=== PATIENT | female | born 1950 | race Two or more races ===

== ENCOUNTER → 2024-09-22 | Outpatient (CLI) | payer OTHER, MEDICAID, SELFPAY ==
[2024-09-22 07:53] LABS: Collection Type, Urine Clean Catch
[2024-09-22 08:29] LABS: Basophils # (Auto) 0.1 Thou/mm3 (0.0-0.2); Basophils % (Auto) 1 % (0-2.5); Eosinophils # (Auto) 0.2 Thou/mm3 (0.0-0.5); Eosinophils % (Auto) 4 % (0-10); Hematocrit 44.3 % (36.0-46.0); Hemoglobin 15.4 g/dL (12.0-16.0); Immature Granulocytes % (Auto) 0 % (0-0); Immature Granulocytes Auto 0.02 Thou/mm3 (0.00-0.00); Lymphocytes # (Auto) 1.9 Thou/mm3 (1.0-4.8); Lymphocytes % (Auto) 33 % (10-50); Mean Corpuscular HGB Conc 34.8 g/dl (31.0-37.0); Mean Corpuscular Hemoglobin 31.6 pg (25.0-35.0); Mean Corpuscular Volume 91 fL (80-100); Monocytes # (Auto) 0.4 Thou/mm3 (0.0-0.8); Monocytes % (Auto) 8 % (0-12); Neutrophils # (Auto) 3.1 Thou/mm3 (1.8-7.7); Neutrophils % (Auto) 54 % (37-80); Nucleated Red Blood Cell % 0 /100 WBC (0); Platelet Count 198 Thou/mm3 (140-440); RDW Standard Deviation 41.4 fL (36.4-46.3); Red Blood Count 4.87 Miln/mm3 (4.00-5.20); White Blood Count 5.8 Thou/mm3 (3.6-11.0)
[2024-09-22 08:36] LABS: Bilirubin,Urine Negative (Negative); Blood,Urine Negative (Negative); Clarity,Urine Clear (Clear/Hazy); Color,Urine Lt-Yellow (Lt Yel-Yel); Culture Indicated,Urine Not Indicated; Glucose, Urine Negative (Negative); Ketones,Urine Negative (Negative); Leukocyte Esterase,Urine Positive (Negative); Nitrite,Urine Negative (Negative); Protein,Urine Negative (Neg - Trace); RBC,Urine 5 /hpf (0-3); Squamous Epithelial Cell,Urine 2 /hpf (0-5); Urobilinogen,Urine Negative mg/dL (0.0-1.0); WBC,Urine 9 /hpf (0-5)
[2024-09-22 08:37] LABS: Glucose Estimated Average 146 mg/dL (80-131); Hemoglobin A1C 6.7 % Hgb (4.8-6.0)
[2024-09-22 08:45] LABS: Vitamin B12 539 pg/mL (211-911); Vitamin D 25 Hydroxy Total 16.6 ng/mL (7.3-40.2)
[2024-09-22 08:47] LABS: Alanine Aminotransferase 16 U/L (10-49); Albumin, Serum 4.1 gm/dL (3.4-4.8); Albumin/Globulin Ratio 1.6 (1.2-2.2); Alkaline Phosphatase 103 U/L (46-116); Anion Gap 8 (7-16); Aspartate Amino Transferase 20 U/L (0-34); BUN/Creatinine Ratio 30 Ratio (12-20); Bilirubin,Total 0.5 mg/dL (0.3-1.2); Blood Urea Nitrogen 18 mg/dL (9-23); Calcium 9.6 mg/dL (8.3-10.6); Calcium (Corrected) 9.6 mg/dL (8.5-10.1); Carbon Dioxide 28.8 mMol/L (20.0-31.0); Chloride 103 mMol/L (98-107); Cholesterol 239 mg/dL (132-200); Creatinine (Component) 0.6 mg/dL (0.6-1.3); Globulin 2.5 gm/dL (2.3-3.5); Glucose 148 mg/dL (74-106); HDL Cholesterol 40 mg/dL (40-60); LDL Cholesterol,Calculated 164 mg/dL (0-130); Osmolality,Calculated 284 (275-295); Potassium 4.4 mMol/L (3.4-5.1); Sodium 140 mMol/L (136-145); Thyroid Stimulating Hormone 1.61 uIU/mL (0.55-4.78); Total Protein 6.6 gm/dL (5.7-8.2); Triglycerides 175 mg/dL (30-150); eGFR > 60 See Note
[2024-09-22 08:53] LABS: Creatinine MALB Rnd Ur 101 mg/dL (30-125); Microalbumin Creat Ratio 8 mg/gCrea (<30); Microalbumin, Random Urine 8 mg/L (0-300)
== END | disposition home or self-care (01) ==
LOC: COPL 07:11
PROVIDERS: PCP Physician Assistant; Referring Provider Physician Assistant; Visit Provider Physician Assistant
DX: Z00.00 Encounter for general adult medical examination without abnormal findings (principal); E78.5 Hyperlipidemia, unspecified; E11.9 Type 2 diabetes mellitus without complications; R31.9 Hematuria, unspecified
CPT/HCPCS: 36415; 80053; 80061; 81001; 82043; 82306; 82570; 82607; 83036; 84443; 85025

== ENCOUNTER 2024-09-28 19:27 | Emergency (ER) | payer OTHER, SELFPAY ==
[2024-09-28 19:28] VITALS: BMI 33.2
[2024-09-28 20:25] VITALS: BP 166/80; PULSE 79; RESP 18; TEMP 36.8; O2SAT 95
--- NOTE | 2024-09-28 21:41 | PD.EDRME ---
Rapid Medical Screening Exam RME Arrival date/time: 09/28/24 19:27 73F with history of anxiety presents to ED with 5 years of intermittent RUQ inflammation. Patient has had multiple benign work-ups including US and CT (most recently 6 months ago). Patient has not seen specialist and wanted to come here because it is faster. Patient states inflammation/discomfort is better when she stands. Chief Complaint: Abdominal Pain Vital signs: Vital Signs Temperature 98.2 F 09/28/24 20:25 Pulse Rate 79 09/28/24 20:25 Respiratory Rate 18 09/28/24 20:25 Blood Pressure 166/80 H 09/28/24 20:25 Pulse Oximetry (%) 95 09/28/24 20:25 Oxygen Delivery Method Room Air 09/28/24 20:25
== END 2024-09-28 21:42 | disposition left against medical advice (07) ==
PROVIDERS: Emergency Provider Emergency Medicine
DX: R10.11 Right upper quadrant pain (principal)
CPT/HCPCS: 99281

== ENCOUNTER → 2024-09-29 | Outpatient (CLI) | payer OTHER, MEDICAID, SELFPAY ==
--- NOTE | 2024-09-29 13:23 | XR_ITS ---
Examination: Knee, right , 3 views Technique: Knee AP, lateral, oblique 3 views Date and time of exam: September 29, 2024 1408 hours INDICATIONS: Right knee pain beginning 2 years ago FINDINGS: Moderate tricompartment osteoarthritis Moderate osteopenia. No fracture IMPRESSION: Moderate tricompartment osteoarthritis
--- NOTE | 2024-09-29 13:23 | XR_ITS ---
Examination: Lumbar spine, 5 views Technique: Lumbar spine AP, lateral, coned lateral lower lumbar spine, bilateral obliques 5 views Exam date and time: September 29, 2024 1408 hours Comparison 03/20/2022 FINDINGS: Thoracolumbar dextroscoliosis 8 degrees Diffuse moderate facet arthropathy No lumbar fracture Moderate lumbar spondylosis Diffuse [id number] lumbar degenerative disc disease, most prominent L4-L5, L5-S1 IMPRESSION: Diffuse [id number] lumbar degenerative disc disease, most prominent L4-L5, L5-S1
--- NOTE | 2024-09-29 13:23 | XR_ITS ---
Examination:Right hip AP, lateral, AP pelvis 3 views Technique: Hip AP lateral, AP pelvis, 3 views Exam date and time:September 21, 2024 1408 hours INDICATIONS: Right hip pain 2 years FINDINGS: Moderate to advanced right hip osteoarthritis Prominent osteopenia. Total left hip arthroplasty with satisfactory alignment IMPRESSION: Moderate to advanced right hip osteoarthritis.
--- NOTE | 2024-09-29 13:23 | XR_ITS ---
Examination: Right femur 2 views Technique one AP lateral right femur 2 views Exam date and time: September 29, 2024 1428 hours INDICATIONS: Right femur pain 2 years. FINDINGS: Moderate to advanced right hip osteoarthritis No hip fracture or hip dislocation Shaft of the femur intact Moderate right knee tricompartment osteoarthritis IMPRESSION: Moderate to advanced right hip osteoarthritis No hip or femoral shaft fracture
--- NOTE | 2024-09-29 13:30 | XR_ITS ---
Examination: Pelvic ultrasound, transabdominal, complete Technique: Transabdominal ultrasound of the pelvis performed using grayscale imaging Date and time of exam: September 29, 2024 1328 hours INDICATIONS: Recurrent urinary tract infections, diagnosis not inflammatory disorders of the uterus months, pelvic pain months FINDINGS: Uterus 8.3 cm endometrial stripe 0.5 cm Uterine fundal mass 3.0 x 3.2 cm uterine body mass 2.6 x 2.8 cm Right ovary 2.9 cm arterial flow Left ovary obscured by bowel gas IMPRESSION: Uterine areas of probable fibroid degeneration, recommend 6 month follow-up transvaginal pelvic sonography
--- NOTE | 2024-09-29 14:10 | XR_ITS ---
Examination: Bone densitometry Date and time of exam:September 29, 2024 1431 hours INDICATIONS: Menopause age 43 Technique: Lumbar spine and hip total bone mineralization values of an calculated. Peak reference and age match control results have been displayed. Findings: Lumbar spine total bone mineralization is1.057 gm/cm2. This is 0.1 standard deviations above peak reference. This is 2.5 standard deviations above age-matched controls. Hip total bone mineralization is 1.016 gm/cm2 This is 0.4 standard deviations above peak reference. This is 2.2 standard deviations above age-matched controls Impression: There is normal mineralization based on lumbar spine measurements. There is osteopenia based on hip measurements Lumbar mineralization is increased 2.2% compared with May 12, 2016 Hip mineralization is increase 4.8% compared with May 12, 2016
== END | disposition home or self-care (01) ==
PROVIDERS: PCP Family Medicine; Referring Provider Physician Assistant; Visit Provider Physician Assistant
DX: N85.8 Other specified noninflammatory disorders of uterus (principal); M85.89 Other specified disorders of bone density and structure, multiple sites; M16.11 Unilateral primary osteoarthritis, right hip; M17.11 Unilateral primary osteoarthritis, right knee; M51.369 Other intervertebral disc degeneration, lumbar region without mention of lumbar back pain or lower extremity pain; M51.379 Other intervertebral disc degeneration, lumbosacral region without mention of lumbar back pain or lower extremity pain
CPT/HCPCS: 72110; 73502; 73552; 73562; 76856; 77080

== ENCOUNTER → 2024-10-04 | Outpatient (CLI) | payer OTHER, MEDICAID, SELFPAY ==
--- NOTE | 2024-10-04 16:30 | XR_ITS ---
Examination: MRI abdomen , with intravenous contrast. Exam date and time: October 04, 2024 1823 hours INDICATIONS: Right upper abdominal pain beginning 2 months ago, fatty liver on CT abdomen study April 13, 2024 Technique: Multiple axial, sagittal and coronal images of the abdomen have been obtained with the Siemens high-resolution 1.5 Manisha MRI scanner. Axial, sagittal and coronal images are obtained post intravenous injection 20 cc gadolinium. Findings: No focal enhancing liver lesions No gallstones identified Spleen is not enlarged No pancreatic mass or dilated pancreatic duct Normal adrenal glands Abdominal aorta normal size No abdominal lymphadenopathy Small bilateral renal cysts, the largest lower pole left kidney 14 mm No hydronephrosis No extrahepatic biliary tract dilatation IMPRESSION: No abdominal mass or lymphadenopathy Consider a hepatobiliary sonography follow-up
== END | disposition home or self-care (01) ==
PROVIDERS: PCP Physician Assistant; Referring Provider Physician Assistant; Visit Provider Physician Assistant
DX: R10.9 Unspecified abdominal pain (principal)
CPT/HCPCS: 74182; A9579

== ENCOUNTER → 2024-10-11 | Outpatient (CLI) | payer OTHER, MEDICAID, SELFPAY ==
[2024-10-11 15:50] LABS: Collection Type, Urine Clean Catch
[2024-10-11 16:35] LABS: Bilirubin,Urine Negative (Negative); Blood,Urine Negative (Negative); Clarity,Urine Clear (Clear/Hazy); Color,Urine Lt-Yellow (Lt Yel-Yel); Glucose, Urine Negative (Negative); Ketones,Urine Negative (Negative); Leukocyte Esterase,Urine Positive (Negative); Nitrite,Urine Negative (Negative); PH,Urine 6.5 (5.0-7.0); Protein,Urine Negative (Neg - Trace); RBC,Urine 1 /hpf (0-3); Specific Gravity,Urine 1.013 (1.001-1.035); Squamous Epithelial Cell,Urine 2 /hpf (0-5); Urobilinogen,Urine Negative mg/dL (0.0-1.0); WBC,Urine 50 /hpf (0-5)
== END | disposition home or self-care (01) ==
LOC: SLDO 15:43
PROVIDERS: PCP Physician Assistant; Referring Provider Physician Assistant; Visit Provider Physician Assistant
DX: R10.9 Unspecified abdominal pain (principal)
CPT/HCPCS: 81001; 87086

== ENCOUNTER → 2025-02-21 | Outpatient (CLI) | payer OTHER, MEDICAID, SELFPAY ==
[2025-02-21 09:31] LABS: Collection Type, Urine Clean Catch
[2025-02-21 09:42] LABS: Glucose Estimated Average 151 mg/dL (80-131); Hemoglobin A1C 6.9 % Hgb (4.8-6.0)
[2025-02-21 10:00] LABS: Alanine Aminotransferase 16 U/L (10-49); Albumin, Serum 4.2 gm/dL (3.4-4.8); Albumin/Globulin Ratio 1.7 (1.2-2.2); Alkaline Phosphatase 99 U/L (46-116); Anion Gap 8 (7-16); Aspartate Amino Transferase 19 U/L (0-34); BUN/Creatinine Ratio 30 Ratio (12-20); Bilirubin,Total 0.5 mg/dL (0.3-1.2); Blood Urea Nitrogen 18 mg/dL (9-23); Calcium 10.2 mg/dL (8.3-10.6); Calcium (Corrected) 10.2 mg/dL (8.5-10.1); Carbon Dioxide 29.8 mMol/L (20.0-31.0); Cardiac Risk Estimate 4.5 RATIO (3.7-5.6); Chloride 104 mMol/L (98-107); Cholesterol 199 mg/dL (132-200); Creatinine (Component) 0.6 mg/dL (0.6-1.3); Globulin 2.5 gm/dL (2.3-3.5); Glucose 130 mg/dL (74-106); HDL Cholesterol 44 mg/dL (40-60); LDL Cholesterol,Calculated 129 mg/dL (0-130); Osmolality,Calculated 287 (275-295); Potassium 4.6 mMol/L (3.4-5.1); Sodium 142 mMol/L (136-145); Total Protein 6.7 gm/dL (5.7-8.2); Triglycerides 128 mg/dL (30-150); eGFR > 60 See Note
[2025-02-21 10:15] LABS: Bilirubin,Urine Negative (Negative); Blood,Urine Negative (Negative); Clarity,Urine Clear (Clear/Hazy); Color,Urine Lt-Yellow (Lt Yel-Yel); Culture Indicated,Urine Not Indicated; Glucose, Urine Negative (Negative); Ketones,Urine Negative (Negative); Leukocyte Esterase,Urine Positive (Negative); Nitrite,Urine Negative (Negative); PH,Urine 6.5 (5.0-7.0); Protein,Urine Negative (Neg - Trace); RBC,Urine 3 /hpf (0-3); Specific Gravity,Urine 1.021 (1.001-1.035); Squamous Epithelial Cell,Urine 2 /hpf (0-5); Urobilinogen,Urine Negative mg/dL (0.0-1.0); WBC,Urine 5 /hpf (0-5)
== END | disposition home or self-care (01) ==
LOC: COPL 08:47
PROVIDERS: PCP Family Medicine; Referring Provider Physician Assistant; Visit Provider Physician Assistant
DX: E78.5 Hyperlipidemia, unspecified (principal); E11.9 Type 2 diabetes mellitus without complications; R31.9 Hematuria, unspecified
CPT/HCPCS: 36415; 80053; 80061; 81001; 83036

== ENCOUNTER → 2025-04-05 | Outpatient (CLI) | payer OTHER, MEDICAID, SELFPAY ==
--- NOTE | 2025-04-05 13:36 | XR_ITS ---
Examination: Duplex scan of the lower extremity, unilateral right Date and time of exam: April 05, 2025, 1349 hours INDICATIONS: Right leg swelling and pain beginning one week ago Technique: Duplex scan of the extremity veins using B-mode/grayscale imaging and Doppler spectral analysis and color flow Attention is directed to internal echogenicity, compression and augmentation involving these veins, color flow assessment, spectral analysis Findings: Positive for occlusive thrombus involving the entire deep venous system right leg, common femoral superficial femoral-popliteal perineal posterior tibial veins IMPRESSION: Positive for extensive occlusive thrombus in the entire deep venous system right leg
[2025-04-05 15:26] LABS: Basophils # (Auto) 0.1 Thou/mm3 (0.0-0.2); Basophils % (Auto) 1 % (0-2.5); Eosinophils # (Auto) 0.2 Thou/mm3 (0.0-0.5); Eosinophils % (Auto) 2 % (0-10); Hematocrit 42.9 % (36.0-46.0); Hemoglobin 14.7 g/dL (12.0-16.0); Immature Granulocytes Auto 0.03 Thou/mm3 (0.00-0.00); Lymphocytes # (Auto) 1.8 Thou/mm3 (1.0-4.8); Lymphocytes % (Auto) 22 % (10-50); Mean Corpuscular HGB Conc 34.3 g/dl (31.0-37.0); Mean Corpuscular Hemoglobin 32.7 pg (25.0-35.0); Mean Corpuscular Volume 96 fL (80-100); Monocytes # (Auto) 0.7 Thou/mm3 (0.0-0.8); Monocytes % (Auto) 8 % (0-12); Neutrophils # (Auto) 5.7 Thou/mm3 (1.8-7.7); Neutrophils % (Auto) 67 % (37-80); Nucleated Red Blood Cell # 0.00 Thou/mm3 (0.00-0.00); Nucleated Red Blood Cell % 0 /100 WBC (0); Platelet Count 236 Thou/mm3 (140-440); RDW Standard Deviation 44.1 fL (36.4-46.3); Red Blood Count 4.49 Miln/mm3 (4.00-5.20); White Blood Count 8.5 Thou/mm3 (3.6-11.0)
[2025-04-05 15:46] LABS: Alanine Aminotransferase 13 U/L (10-49); Albumin, Serum 4.3 gm/dL (3.4-4.8); Albumin/Globulin Ratio 1.7 (1.2-2.2); Alkaline Phosphatase 104 U/L (46-116); Anion Gap 9 (7-16); Aspartate Amino Transferase 16 U/L (0-34); BUN/Creatinine Ratio 33 Ratio (12-20); Bilirubin,Total 0.4 mg/dL (0.3-1.2); Blood Urea Nitrogen 20 mg/dL (9-23); Calcium 9.8 mg/dL (8.3-10.6); Calcium (Corrected) 9.8 mg/dL (8.5-10.1); Carbon Dioxide 29.8 mMol/L (20.0-31.0); Chloride 105 mMol/L (98-107); Creatinine (Component) 0.6 mg/dL (0.6-1.3); Globulin 2.6 gm/dL (2.3-3.5); Glucose 110 mg/dL (74-106); Osmolality,Calculated 290 (275-295); Potassium 3.9 mMol/L (3.4-5.1); Sodium 144 mMol/L (136-145); Thyroid Stimulating Hormone 0.86 uIU/mL (0.55-4.78); Total Protein 6.9 gm/dL (5.7-8.2); eGFR > 60 See Note
[2025-04-05 17:03] LABS: B-Type Natriuretic Peptide < 20 pg/mL (0-100)
== END | disposition home or self-care (01) ==
LOC: CDIM 13:25 → COPL 14:29
PROVIDERS: PCP Student in an Organized Health Care Education/Training Program; Referring Provider Student in an Organized Health Care Education/Training Program; Visit Provider Radiology Diagnostic Radiology
DX: I82.491 Acute embolism and thrombosis of other specified deep vein of right lower extremity (principal); R22.41 Localized swelling, mass and lump, right lower limb
CPT/HCPCS: 36415; 80053; 83880; 84443; 85025; 93971

== ENCOUNTER → 2025-04-11 | Outpatient (CLI) | payer OTHER, MEDICAID, SELFPAY ==
[2025-04-11 13:05] LABS: Basophils # (Auto) 0.1 Thou/mm3 (0.0-0.2); Basophils % (Auto) 1 % (0-2.5); Eosinophils # (Auto) 0.1 Thou/mm3 (0.0-0.5); Eosinophils % (Auto) 2 % (0-10); Hematocrit 43.3 % (36.0-46.0); Hemoglobin 14.5 g/dL (12.0-16.0); Immature Granulocytes Auto 0.05 Thou/mm3 (0.00-0.00); Lymphocytes # (Auto) 1.4 Thou/mm3 (1.0-4.8); Lymphocytes % (Auto) 19 % (10-50); Mean Corpuscular HGB Conc 33.5 g/dl (31.0-37.0); Mean Corpuscular Hemoglobin 32.0 pg (25.0-35.0); Mean Corpuscular Volume 96 fL (80-100); Monocytes # (Auto) 0.6 Thou/mm3 (0.0-0.8); Monocytes % (Auto) 8 % (0-12); Neutrophils # (Auto) 5.1 Thou/mm3 (1.8-7.7); Neutrophils % (Auto) 69 % (37-80); Nucleated Red Blood Cell # 0.00 Thou/mm3 (0.00-0.00); Nucleated Red Blood Cell % 0 /100 WBC (0); Platelet Count 340 Thou/mm3 (140-440); RDW Standard Deviation 45.0 fL (36.4-46.3); Red Blood Count 4.53 Miln/mm3 (4.00-5.20); White Blood Count 7.3 Thou/mm3 (3.6-11.0)
[2025-04-11 13:19] LABS: Alanine Aminotransferase 22 U/L (10-49); Albumin, Serum 4.7 gm/dL (3.4-4.8); Albumin/Globulin Ratio 1.7 (1.2-2.2); Alkaline Phosphatase 109 U/L (46-116); Anion Gap 10 (7-16); Aspartate Amino Transferase 26 U/L (0-34); BUN/Creatinine Ratio 24 Ratio (12-20); Bilirubin,Total 0.4 mg/dL (0.3-1.2); Blood Urea Nitrogen 17 mg/dL (9-23); Calcium 10.3 mg/dL (8.3-10.6); Calcium (Corrected) 10.3 mg/dL (8.5-10.1); Carbon Dioxide 28.5 mMol/L (20.0-31.0); Chloride 102 mMol/L (98-107); Creatinine (Component) 0.7 mg/dL (0.6-1.3); Globulin 2.8 gm/dL (2.3-3.5); Glucose 118 mg/dL (74-106); Osmolality,Calculated 281 (275-295); Potassium 4.1 mMol/L (3.4-5.1); Sodium 140 mMol/L (136-145); Total Protein 7.5 gm/dL (5.7-8.2); eGFR > 60 See Note
== END | disposition home or self-care (01) ==
PROVIDERS: PCP Student in an Organized Health Care Education/Training Program; Referring Provider Student in an Organized Health Care Education/Training Program; Visit Provider Student in an Organized Health Care Education/Training Program
DX: I10 Essential (primary) hypertension (principal)
CPT/HCPCS: 36415; 80053; 85025

== ENCOUNTER → 2025-05-21 | Outpatient (CLI) | payer OTHER, MEDICAID, SELFPAY ==
--- NOTE | 2025-05-21 | XR_ITS ---
EXAMINATION: Cervical spine, 5 views Technique: Cervical spine AP, AP odontoid, lateral, bilateral obliques, 5 views Exam date and time: May 21, 2025, 1310 hours INDICATIONS: Neck pain months FINDINGS: Straightening of the normal cervical dosis No cervical fracture Moderate degenerative disc disease C3-C4, C4-C5, C6-C7 with posterior osteophyte formation and mild to moderate bilateral neuroforaminal stenosis most severe at C6-C7 Intact odontoid IMPRESSION: Moderate degenerative disc disease C3-C4, C4-C5, C5-C6 with bilateral neural foraminal stenosis as above, most severe at C6-C7
--- NOTE | 2025-05-21 | XR_ITS ---
Examination: Lumbar spine, 5 views Technique: Lumbar spine AP, lateral, coned lateral lower lumbar spine, bilateral obliques 5 views Exam date and time: May 21, 2025, 1310 hours INDICATIONS: Low back pain months. FINDINGS: Adequate alignment lumbar vertebral bodies Advanced diffuse facet arthropathy No acute lumbar fracture Moderate lumbar spondylosis Mild diffuse lumbar degenerative disc disease IMPRESSION: Mild diffuse lumbar degenerative disc disease
--- NOTE | 2025-05-21 | XR_ITS ---
EXAMINATION: Thoracic spine 3 views TECHNIQUE: AP and lateral coned lateral upper dorsal spine 3 views Date and time: May 21, 2025, 1322 hours INDICATIONS: Back pain months. FINDINGS: Prominent thoracic spondylosis Mild to moderate diffuse thoracic degenerative disc disease No acute thoracic fracture Prominent osteopenia IMPRESSION: Prominent thoracic spondylosis Mild to moderate diffuse thoracic degenerative disc disease
== END | disposition home or self-care (01) ==
LOC: CDIM 11:53
PROVIDERS: PCP Student in an Organized Health Care Education/Training Program; Referring Provider Student in an Organized Health Care Education/Training Program; Visit Provider Student in an Organized Health Care Education/Training Program
DX: M51.360 Other intervertebral disc degeneration, lumbar region with discogenic back pain only (principal); M50.31 Other cervical disc degeneration, high cervical region; M48.02 Spinal stenosis, cervical region; M47.814 Spondylosis without myelopathy or radiculopathy, thoracic region; M51.34 Other intervertebral disc degeneration, thoracic region
CPT/HCPCS: 72050; 72072; 72110

== ENCOUNTER → 2025-05-28 | Outpatient (CLI) | payer OTHER, MEDICAID, SELFPAY ==
--- NOTE | 2025-05-28 | XR_ITS ---
Examination: Screening digital mammography, bilateral Computer aided detection 3-D breast Tomosynthesis, bilateral Date and time of exam: May 28, 2025, 11:52 a.m., compared to mammograms dating to June 21, 2020 Indication: Screening Technique: Nonmagnified MLO, CC views of the breasts to been obtained, reconstructed from 3-D Tomosynthesis images. R2 computer aided detection program utilized for evaluation of suspicious masses and/or abnormal calcifications. 3-D Tomosynthesis images obtained. Findings: Scattered areas of fibroglandular density. Benign calcifications. No interval suspicious masses Impression: BI-RADS category II: Benign Findings. Recommend 1 year follow-up mammogram.
== END | disposition home or self-care (01) ==
LOC: CDIM 11:42
PROVIDERS: PCP Physician Assistant; Referring Provider Student in an Organized Health Care Education/Training Program; Visit Provider Student in an Organized Health Care Education/Training Program
DX: Z12.31 Encounter for screening mammogram for malignant neoplasm of breast (principal); R92.323 Mammographic fibroglandular density, bilateral breasts; R92.1 Mammographic calcification found on diagnostic imaging of breast
CPT/HCPCS: 77063; 77067

== ENCOUNTER → 2025-06-18 | Outpatient (CLI) | payer OTHER, MEDICAID, SELFPAY ==
[2025-06-18 11:03] LABS: Alanine Aminotransferase 13 U/L (10-49); Albumin, Serum 4.4 gm/dL (3.4-4.8); Albumin/Globulin Ratio 1.6 (1.2-2.2); Alkaline Phosphatase 95 U/L (46-116); Anion Gap 10 (7-16); Aspartate Amino Transferase 18 U/L (0-34); BUN/Creatinine Ratio 30 Ratio (12-20); Bilirubin,Total 0.4 mg/dL (0.3-1.2); Blood Urea Nitrogen 18 mg/dL (9-23); Calcium 9.4 mg/dL (8.3-10.6); Calcium (Corrected) 9.4 mg/dL (8.5-10.1); Carbon Dioxide 29.6 mMol/L (20.0-31.0); Cardiac Risk Estimate 5.4 RATIO (3.7-5.6); Chloride 104 mMol/L (98-107); Cholesterol 227 mg/dL (132-200); Creatinine (Component) 0.6 mg/dL (0.6-1.3); Globulin 2.7 gm/dL (2.3-3.5); Glucose 132 mg/dL (74-106); HDL Cholesterol 42 mg/dL (40-60); LDL Cholesterol,Calculated 140 mg/dL (0-130); Osmolality,Calculated 290 (275-295); Potassium 4.4 mMol/L (3.4-5.1); Sodium 144 mMol/L (136-145); Total Protein 7.1 gm/dL (5.7-8.2); Triglycerides 224 mg/dL (30-150); eGFR > 60 See Note
[2025-06-18 11:11] LABS: Glucose Estimated Average 146 mg/dL (80-131); Hemoglobin A1C 6.7 % Hgb (4.8-6.0)
== END | disposition home or self-care (01) ==
LOC: COPL 09:23
PROVIDERS: PCP Family Medicine; Referring Provider Physician Assistant; Visit Provider Physician Assistant
DX: E78.5 Hyperlipidemia, unspecified (principal); E11.9 Type 2 diabetes mellitus without complications
CPT/HCPCS: 36415; 80053; 80061; 83036